=== PATIENT | female | born 1980 | race Two or more races ===

== ENCOUNTER 2016-10-10 21:29 | Emergency (ER) | payer BC ==
[~2016-10-10] VITALS: Ht 175.3 cm; Wt 94.2 kg
[2016-10-10 21:30] VITALS: BP 120/78
[2016-10-10] MEDS ORDERED: DIPH,PERTUSS(ACELL),TET VAC/PF 0.5 ML IM-VACC ONE ×2 (22:20→22:30)
[2016-10-10] MEDS ORDERED: LIDOCAINE 1%, 20ML ONE (22:20)
[2016-10-10] MEDS ORDERED: LIDOCAINE 1%, 20ML SQ ONE (22:30)
[2016-10-10] MEDS ORDERED: BACITRACIN ZINC OINT 500U/GM, 0.9 GM ONE (22:58)
== END 2016-10-10 23:10 | disposition home or self-care (01) ==
LOC: ED 22:33
DX: S61.011A Laceration without foreign body of right thumb without damage to nail, initial encounter (principal); W45.8XXA Other foreign body or object entering through skin, initial encounter; Y93.89 Activity, other specified; Y92.009 Unspecified place in unspecified non-institutional (private) residence as the place of occurrence of the external cause; Y99.9 Unspecified external cause status
CPT/HCPCS: 12001; 90471; 90715